=== PATIENT | female | born 1950 | race African-American/Black ===

== ENCOUNTER 2021-05-30 15:40 | Inpatient (IN) | payer OTHER ==
[~2021-05-30] VITALS: Ht 170.2 cm; Wt 89.5 kg
[2021-05-30 17:20] VITALS: BP 164/7; BP 164/78
[2021-05-30] MEDS ORDERED: BUSPAR 15MG TAB15 MG PO (17:23)
[2021-05-30] MEDS ORDERED: CALCIUM 600 +1 EAC7 PO (17:23)
[2021-05-30] MEDS ORDERED: TYLENOL 325MG325 MG PO (17:23)
[2021-05-30] MEDS ORDERED: SINEMET 10-1001 EACH PO (17:24)
[2021-05-30] MEDS ORDERED: CARVEDILOL6.25 MG PO (17:24)
[2021-05-30] MEDS ORDERED: VITAMIN D3125 MCG PO (17:25)
[2021-05-30] MEDS ORDERED: DEXAMETHASONE6 M1 PO (17:26)
[2021-05-30] MEDS ORDERED: COL-RITE100 M1 PO (17:27)
[2021-05-30] MEDS ORDERED: DEPAKOTE DR500 MG PO (17:27)
[2021-05-30] MEDS ORDERED: INSULIN HUMA100 U/ML SQ (17:28)
[2021-05-30] MEDS ORDERED: FUROSEMIDE20 MG PO (17:28)
[2021-05-30] MEDS ORDERED: CYMBALTA60 M1 PO (17:28)
[2021-05-30] MEDS ORDERED: LANTUS PEN100 U/ML SQ (17:29)
[2021-05-30] MEDS ORDERED: LATANOPROST 0.7.5 ML OP (17:33)
[2021-05-30] MEDS ORDERED: ZESTRIL5 M1 PO (17:33)
[2021-05-30] MEDS ORDERED: IMODIUM 2MG CAPS2 MG PO (17:35)
[2021-05-30] MEDS ORDERED: METFORMIN HYD1000 MG PO (17:37)
[2021-05-30] MEDS ORDERED: MELATONIN5 M3 PO (17:37)
[2021-05-30] MEDS ORDERED: NORTRIPTYLINE H50 M1 PO (17:37)
[2021-05-30] MEDS ORDERED: MYSOLINE50 M1 PO (17:38)
[2021-05-30] MEDS ORDERED: FIBERCON625 M1 PO (17:38)
[2021-05-30] MEDS ORDERED: PREGABALIN50 MG PO (17:38)
[2021-05-30] MEDS ORDERED: TIMOPTIC OCUDOSE0.5% OP (17:39)
[2021-05-30] MEDS ORDERED: QUETIAPINE FUM100 M1 PO (17:39)
[2021-05-31 06:01] VITALS: BP 107/56
[2021-05-31 07:24] LABS: HEMOGLOBIN 12.5 g/dL (12.5-16.0); MEAN CELL VOLUME 81 fl (78-100); MEAN CORPUSCULAR HEMOGLOBIN 24 pg (27-31); MEAN CORPUSCULAR HGB CONC 30 g/dL (33-37); MEAN PLATELET VOLUME 11.4 fl (7.4-10.4); PLATELET COUNT 190 K/mm3 (130-400); RED BLOOD COUNT 5.21 M/mm3 (4.10-5.30); RED CELL DISTRIBUTION WIDTH 15.6 % (11.5-14.5); WHITE BLOOD COUNT 10.1 K/mm3 (4.8-10.8)
[2021-05-31 07:36] LABS: LYMPHOCYTE 45 % (20-51); MONOCYTE 7 % (3-10); NEUTROPHILS 42 % (42-75)
[2021-05-31 07:37] LABS: BAND 2 % (0-10)
[2021-05-31 07:41] LABS: ALBUMIN 3.2 g/dL (3.4-4.8); POTASSIUM 4.9 mmol/L (3.5-5.1)
[2021-05-31 07:42] LABS: CALCIUM 8.6 mg/dL (8.3-10.5)
[2021-05-31 07:44] LABS: TOTAL PROTEIN 6.4 g/dL (6.2-8.1)
[2021-05-31 07:45] LABS: TOTAL BILIRUBIN 0.2 mg/dL (0.2-1.2)
[2021-05-31 08:32] LABS: URINE APPEARANCE CLEAR; URINE BILIRUBIN NEGATIVE (NEGATIVE); URINE BLOOD NEGATIVE (NEGATIVE); URINE COLOR YELLOW; URINE GLUCOSE NEGATIVE (NEGATIVE); URINE KETONE NEGATIVE (NEGATIVE); URINE LEUKOCYTE ESTERASE NEGATIVE (NEGATIVE); URINE NITRATE NEGATIVE (NEGATIVE); URINE PROTEIN(semi-quant) TRACE mg/dL (NEGATIVE); URINE UROBILINOGEN NORMAL (NORMAL)
[2021-05-31 18:01] VITALS: BP 114/53
[2021-06-01 05:49] VITALS: BP 109/57
[2021-06-01 16:05] VITALS: BP 116/60
[2021-06-02 05:57] VITALS: BP 125/63
[2021-06-02 18:26] VITALS: BP 120/61
[2021-06-03 06:24] VITALS: BP 147/77
[2021-06-03 18:00] VITALS: BP 122/84
[2021-06-04 05:41] VITALS: BP 151/71
[2021-06-04 18:20] VITALS: BP 108/68
[2021-06-05 05:53] VITALS: BP 120/74
[2021-06-05 18:00] VITALS: BP 96/63
[2021-06-06 05:21] VITALS: BP 107/71
[2021-06-06 08:57] VITALS: BP 112/77
[2021-06-06 09:53] LABS: BASO # 0.03 K/mm3 (0.02-0.10); EOS # 0.09 K/mm3 (0.04-0.40); EOS % 1.1 % (1.0-5.0); HEMATOCRIT 41.2 % (37.0-47.0); HEMOGLOBIN 12.7 g/dL (12.5-16.0); LYMPH# 4.58 K/mm3 (1.50-4.00); MEAN CELL VOLUME 77 fl (78-100); MEAN CORPUSCULAR HEMOGLOBIN 24 pg (27-31); MEAN CORPUSCULAR HGB CONC 31 g/dL (33-37); MEAN PLATELET VOLUME 11.1 fl (7.4-10.4); MONO # 0.66 K/mm3 (0.20-0.80); NEU # 2.49 K/mm3 (1.40-6.50); PLATELET COUNT 222 K/mm3 (130-400); RED BLOOD COUNT 5.34 M/mm3 (4.10-5.30); RED CELL DISTRIBUTION WIDTH 15.6 % (11.5-14.5)
[2021-06-06 09:55] LABS: ALBUMIN 3.7 g/dL (3.4-4.8); POTASSIUM 5.3 mmol/L (3.5-5.1)
[2021-06-06 09:56] LABS: CALCIUM 9.1 mg/dL (8.3-10.5)
[2021-06-06 09:57] LABS: TOTAL PROTEIN 6.9 g/dL (6.2-8.1)
[2021-06-06 09:59] LABS: TOTAL BILIRUBIN 0.3 mg/dL (0.2-1.2)
[2021-06-06 17:30] LABS: POTASSIUM 4.8 mmol/L (3.5-5.1)
[2021-06-06 17:32] LABS: CALCIUM 8.8 mg/dL (8.3-10.5)
[2021-06-06 18:18] VITALS: BP 110/76
[2021-06-07 05:56] VITALS: BP 139/75
[2021-06-07 17:42] VITALS: BP 110/76
[2021-06-08 06:06] VITALS: BP 114/74
[2021-06-08 18:07] VITALS: BP 89/56
[2021-06-09 06:01] VITALS: BP 137/75
[2021-06-09 18:19] VITALS: BP 100/58
[2021-06-10 06:21] VITALS: BP 107/68
[2021-06-10 14:18] VITALS: BP 103/74
[2021-06-11 06:05] VITALS: BP 131/61
[2021-06-11 14:07] VITALS: BP 100/63
[2021-06-12 05:43] VITALS: BP 124/73
[2021-06-12 14:00] VITALS: BP 127/57
[2021-06-13 06:02] VITALS: BP 135/57
[2021-06-13 07:21] LABS: BASO # 0.02 K/mm3 (0.02-0.10); EOS # 0.08 K/mm3 (0.04-0.40); EOS % 1.5 % (1.0-5.0); HEMATOCRIT 33.5 % (37.0-47.0); HEMOGLOBIN 10.3 g/dL (12.5-16.0); LYMPH# 2.81 K/mm3 (1.50-4.00); MEAN CELL VOLUME 79 fl (78-100); MEAN CORPUSCULAR HEMOGLOBIN 24 pg (27-31); MEAN CORPUSCULAR HGB CONC 31 g/dL (33-37); MEAN PLATELET VOLUME 11.2 fl (7.4-10.4); MONO # 0.68 K/mm3 (0.20-0.80); NEU # 1.86 K/mm3 (1.40-6.50); PLATELET COUNT 161 K/mm3 (130-400); RED BLOOD COUNT 4.23 M/mm3 (4.10-5.30); RED CELL DISTRIBUTION WIDTH 15.7 % (11.5-14.5); WHITE BLOOD COUNT 5.5 K/mm3 (4.8-10.8)
[2021-06-13 07:33] LABS: POTASSIUM 5.2 mmol/L (3.5-5.1)
[2021-06-13 07:34] LABS: CALCIUM 8.6 mg/dL (8.3-10.5)
[2021-06-14 05:57] VITALS: BP 124/62; BP 127/74
[2021-06-14 17:39] VITALS: BP 109/71
[2021-06-15 05:35] VITALS: BP 124/78
[2021-06-15 14:02] VITALS: BP 103/64
[2021-06-16 05:04] VITALS: BP 156/63
[2021-06-16 17:20] VITALS: BP 113/81
[2021-06-17 06:02] VITALS: BP 118/76
[2021-06-17 17:52] VITALS: BP 110/59
[2021-06-18 06:11] VITALS: BP 123/73
[2021-06-18 07:43] LABS: CALCIUM 8.8 mg/dL (8.3-10.5)
[2021-06-18 07:45] LABS: BASO # 0.24 K/mm3 (0.02-0.10); EOS # 0.09 K/mm3 (0.04-0.40); EOS % 1.7 % (1.0-5.0); HEMATOCRIT 38.3 % (37.0-47.0); HEMOGLOBIN 10.6 g/dL (12.5-16.0); LYMPH# 1.55 K/mm3 (1.50-4.00); MEAN CELL VOLUME 96 fl (78-100); MEAN CORPUSCULAR HEMOGLOBIN 27 pg (27-31); MEAN CORPUSCULAR HGB CONC 28 g/dL (33-37); MEAN PLATELET VOLUME 13.7 fl (7.4-10.4); NEU # 2.83 K/mm3 (1.40-6.50); PLATELET COUNT 120 K/mm3 (130-400); WHITE BLOOD COUNT 5.3 K/mm3 (4.8-10.8)
[2021-06-18 14:02] VITALS: BP 130/76
[2021-06-19 05:54] VITALS: BP 146/80
== END 2021-06-19 12:02 | DRG 179 ==
LOC: MED/SURG 15:40
PROVIDERS: ADMIT Physician Assistant
DX: U07.1 COVID-19 (principal); F41.9 Anxiety disorder, unspecified; F31.9 Bipolar disorder, unspecified; F03.90 Unspecified dementia, unspecified severity, without behavioral disturbance, psychotic disturbance, mood disturbance, and anxiety; I50.9 Heart failure, unspecified; M79.7 Fibromyalgia; G47.33 Obstructive sleep apnea (adult) (pediatric); F25.9 Schizoaffective disorder, unspecified; E87.5 Hyperkalemia; R53.81 Other malaise; Z86.73 Personal history of transient ischemic attack (TIA), and cerebral infarction without residual deficits; Z90.710 Acquired absence of both cervix and uterus; Z88.0 Allergy status to penicillin
CPT/HCPCS: J1650; J1815